=== PATIENT | male | born 1995 | race Caucasian/White ===

== ENCOUNTER 2025-02-25 16:37 | Emergency (ER) | payer OTHER, SELFPAY ==
--- NOTE | ~2025-02-25 | XR_ITS ---
HISTORY: tackled in rugby COMPARISON: None TECHNIQUE: 2 views of the left shoulder were performed. FINDINGS: No acute fracture. The glenohumeral and acromioclavicular joint space is maintained The visualized portion of the adjacent left lung is clear. The humeral head is well seated within the glenoid fossa. IMPRESSION: No acute fracture or anterior dislocation. Reviewed, dictated and finalized at location A.
--- OUTSIDE RECORDS SUMMARY | 2025-02-25 16:40 | XMS_ITS | Clinical Summary ---
Author Organization [employer] Address [address] [place] [address] Care Team Providers Care Tool Room Supervisor Name Role Phone TresPaul Ulises RAZA Primary Care Provi liborio Allergies No known active allergies Medications No known medications Active Problems Problem Noted Date Diagnosed Date Obesity (BMI 30.0-34.9) 07/04/2024 Overview (07/04/2024): Wt Readings from Last 3 Encounters: 07/04/24 107 kg (236 lb) 02/21/24 104.3 kg (230 lb) 02/03/24 106.6 kg (235 lb) - Diet: eats out and cooks at home, lean meat, healthy choices, well hydrated - Exercise: Rugby - Starting weight: 236 - Goal weight: no goal Assessment & Plan (07/04/2024 10:55 AM CDT): Not at goal. Recommended increased exercise and dietary control, up to and including Weight Watchers or counting calories. Recommended increased exercise and dietary control, up to and including Weight Watchers, MyFitnesspal, or other avenues of counting calories. Most recent thyroid function reviewed (if available). Recommended Mediterranean diet, unless diabetic, at which point I recommended diabetic diet. Have considered medications as well, see orders. Periodically will assess for potential for bariatric surgery, see patient instructions. Resolved Problems Problem Noted Date Diagnosed Date Resolved Date Seizure, 05/25/2008 09/17/2023 Overview (05/25/2008): Seizures as . Also had dislocated shoulder during . Never on any meds. No seizure activity since age. Encounters Date Type Department Care Team Description 02/07/2025 External Device Data [facility] ABSTRACTION Provider, Abstract 02/07/2025 External Device Data [facility] ABSTRACTION Provider, Abstract 02/07/2025 External Device Data [facility] ABSTRACTION Provider, Abstract 02/06/2025 External Device Data [facility] ABSTRACTION Provider, Abstract 02/06/2025 External Device Data [facility] ABSTRACTION Provider, Abstract 12/22/2024 External Device Data [facility] ABSTRACTION Provider, Abstract 12/20/2024 External Device Data [facility] ABSTRACTION Provider, Abstract 12/13/2024 External Device Data [facility] ABSTRACTION Provider, Abstract 12/06/2024 External Device Data [facility] ABSTRACTION Provider, Abstract from Last 3 Months Immunizations Immunization Administration Dates Next Due (ADACEL/BOOSTRIX)(10 YR UP) TDAP VACCINE, 0.5ML, IM 12/12/2014,05/18/2014,05/25/2008 (IPOL)(6 WKS AND UP) POLIOVI GENA VACCINE, INACTIVATED (IPV), 3 DOSE, SUBCUT OR IM 06/21/2014 (MENACTRA)(9 MO-55 YR) MENIN GOCOCCAL POLYSACCHARIDE A, C, Y AND W-135 DIPTHERIA TOXOID CONJUGATE VACCINE, (PF), 0.5ML, IM 05/18/2014 (MENVEO)(1 VIAL/2 VIAL)(10-5 5 YRS/2 MOS-55 YRS) MENINGOCOCCAL ACYW OLIGOSACCHARIDE CONJUGATE VACCINE, (PF) IM 05/18/2014 (TYPHIM )(2 YRS UP) TYPHOI D CAPSULAR POLYSACCHARIDE VACCINE, 0.5 ML, IM 11/06/2015 Adenovirus Vaccine Type 4 05/18/2014 Hepatitis B Vaccine 01/19/2015,06/21/2014,2013 INFLUENZA VACCINE QUADRIVALE NT 2-49 YRS NASAL 11/07/2015 INFLUENZA VACCINE QUADRIVALE NT 6 MOS UP PF IM 09/24/2016 Influenza Seasonal Unspecifi ed Formulation IM 05/18/2014 Family History Medical History Relation Name Comments Healthy Brother No Known Problems Daughter Healthy Father Lung Cancer Maternal Grandfather Melanoma Maternal Grandfather Heart Disease Maternal Grandmother Cancer Mother Healthy Mother Respiratory Disease Paternal Grandfather Healthy Paternal Grandmother Relation Name Status Comments Brother Alive Daughter Alive Father Alive Maternal Grandfather Maternal Grandmother Alive Mother Paternal Grandfather Alive Paternal Grandmother Alive Social History Tobacco Use Types Packs/Day Years Used Date Smoking Tobacco: Never Passive Smoke Exposure: Never Smokeless Tobacco: Never Tobacco Cessation:Counseling Given: Not Answered Alcohol Use Standard Drinks/Week Comments No 0 (1 standard drink = 0.6 oz pur e alcohol) Feeling Safe Answer Date Recorded Are you in a relationship wi th someone who hurts you emotionally and/or physically? No 02/21/2024 Sex and Gender Information Value Date Recorded Sex Assigned at Not on file Legal Sex Male 5:35 AM EDUCATION DEAN Gender Identity Not on file Sexual Orientation Not on file Last Filed Vital Signs Vital Sign Reading Time Taken Comments Blood Pressure 122/74 07/04/2024 10:18 AM CDT Pulse 80 07/04/2024 10:18 AM CDT Temperature 36.6 C (97.8 F) 07/04/2024 10:18 AM CDT Respiratory Rate 16 02/21/2024 11:00 AM CDT Oxygen Saturation 98% 07/04/2024 10:18 AM CDT Inhaled Oxygen Concentration - - Weight 107 kg (236 lb) 07/04/2024 10:18 AM CDT Height 177.8 cm (5' 10 ) 07/04/2024 10:18 AM CDT Body Mass Index 33.86 07/04/2024 10:18 AM CDT Plan of Treatment Upcoming Encounters Date Type Department Care Team (Late st Contact Info) Description 07/04/2025 9:00 AM CDT Office Visit [facility] - [address] [facility] [place] [address] Paul Joshua, [address] [facility] [place] [address] Health Maintenance Due Date Last Done Comments HEPATITIS B VACCINES (1 of 3 - 19+ 3-dose series) 2012 01/19/2015, 06/21/2014, 05/18/2014 INFLUENZA VACCINE (#1) 2024 6, 11/07/2015, 05/18/2014 Preventative Visit- Commercial 11/30/2024 07/04/2024, 05/25/2008 DTAP/TDAP/TD VACCINES (4 - T d or Tdap) 12/12/2024 12/12/2014, 05/18/2014, 05/25/2008 HPV VACCINES Aged Out No longer eligi ble based on patient's age to complete this topic PNEUMOCOCCAL VACCINE 0-49 YEARS Aged Out No longer eligible b ased on patient's age to complete this topic Insurance [facility] CHOICE [id number] [facility] Address: [address] [address] [place] [address] [facility] [id number] Care Teams Tool Room Supervisor Relationship Specialty Start Date End Date Paul Joshua DO [address] [place] [id number] PCP - General Family Practice 07/04/24
--- NOTE | 2025-02-25 16:43 | ED.GENADULT ---
HPI - General Adult General Chief complaint: Extremity Injury, Upper Stated complaint: Left Shoulder Injury Time Seen by Provider: 02/25/25 16:43 Source: patient Mode of arrival: ambulatory Limitations: no limitations History of Present Illness HPI narrative: 29-year-old male patient presents to the [facility] with complaints of left shoulder pain. Patient states he was playing rugby today went to tackle and felt pain to the left shoulder. Patient states the game started about 2:00 p.m. today and the incident happened shortly after the game started. Patient states he did take about 500 mg of Tylenol for pain. Related Data Allergies Allergy/AdvReac Type Severity Reaction Status Date / Time No Known Allergies Allergy Verified 02/25/25 16:49 Review of Systems Review of Systems: CONSTITUTIONAL: Denies fever, chills, or sweats. EYES: Denies visual changes, redness, or discharge. ENT: Denies rhinorrhea, congestion, sore throat, or otalgia. CARDIOVASCULAR: Denies chest pain, palpitations, or edema. RESPIRATORY: Denies cough or dyspnea. GASTROINTESTINAL: Denies abdominal pain, nausea, vomiting, or diarrhea. GENITOURINARY: Denies dysuria or hematuria. SKIN: Denies rash or itching. MUSCULOSKELETAL: Denies back pain, joint pain, or myalgia. Positive left shoulder pain NEUROLOGIC: Denies headache, numbness, or weakness. PSYCHIATRIC: Denies anxiety or depression. PMFSH Comments At the time of my signature I agree with nursing past medical history, surgical, social, and family history. There is no relevant family history pertinent to the presenting complaint. Exam Narrative: GENERAL: Well-appearing, well-nourished, and in no acute distress. HEAD: Normocephalic, atraumatic. EYES: PERRLA and EOMI. ENT: Nares clear, no rhinorrhea or epistaxis. Mucous membranes moist. NECK: Supple. No lymphadenopathy CHEST: Clear to auscultation. No respiratory distress. HEART: Regular rate and rhythm. No murmur heard. Normal peripheral pulses. ABDOMEN: Soft, nontender, nondistended, normal active bowel sounds. EXTREMITIES: The L shoulder is without obvious asymmetry or deformity when compared to the R shoulder. No surface trauma, ecchymosis, crepitus. No bony deformity or prominence of the humeral head No erythema, warmth, swelling. tenderness to palpation to A to C joint and rotator cuff. No tenderness to palpation of the bicipital groove or soft tissues. No tenderness to palpation of the muscles of the sterncleidomastoid, pectorals, biceps/triceps, deltoid, trapezius, rhomboid, latissimus dorsi. pain and limitation with active abduction/adduction, internal/external rotation, flexion/extension. unable to perform empty can and drop arm test (rotator cuff) due to patient is not able to raise his arm past his chest. Patient unable to touch his opposite shoulder with the left hand. Has very minimal range of motion reaching towards the lower back. Strength to the left emergency dispatch operator is 2/5 compared to 5/5 on the right side. No axillary tenderness or lymphadenopathy. Normal sensation over the deltoid and ability to flex arm at elbow indicates intact axillary nerve function. Distal motor and neurovascular status is intact. SKIN: Warm, dry, no rash. NEURO: No focal deficits. Alert and oriented x3. Course Course Level of Care: Express Care Visit Vital Signs Vital signs: Vital Signs Temperature 36.6 C 02/25/25 16:49 Pulse Rate 94 02/25/25 16:49 Respiratory Rate 18 02/25/25 16:49 Blood Pressure 151/86 H 02/25/25 16:49 Pulse Oximetry 98 02/25/25 16:49 Oxygen Delivery Room Air 02/25/25 16:49 Temperature 36.6 C 02/25/25 16:49 Pulse Rate 94 02/25/25 16:49 Respiratory Rate 18 02/25/25 16:49 Blood Pressure 151/86 H 02/25/25 16:49 Pulse Oximetry 98 02/25/25 16:49 Oxygen Delivery Room Air 02/25/25 16:49 Vital signs reviewed. The patient has been informed that they may have pre-hypertension or Hypertension based on a BP reading in the department. I recommend that the patient call the primary care provider listed on their discharge instructions or a physician of their choice this week to arrange follow up for further evaluation of possible pre-hypertension or Hypertension Medical Decision Making MDM Narrative Medical decision making narrative: Plan of care patient is to x-ray the left shoulder to assess for any acute injury. I highly suspect possible rotator cuff or AC tear. Plan of care is to give patient some ibuprofen in the clinic today as well as sling and most likely will follow-up with ortho for further evaluation and treatment Differential Diagnosis Differential Diagnosis: Differential diagnosis: Neurovascular compromise, anterior shoulder dislocation, posterior dislocation, facture, AC separation, shoulder cuff tear, bursitis, tendinitis Vital Signs Vital Signs: Vital Signs Temperature 36.6 C 02/25/25 16:49 Pulse Rate 94 02/25/25 16:49 Respiratory Rate 18 02/25/25 16:49 Blood Pressure 151/86 H 02/25/25 16:49 Pulse Oximetry 98 02/25/25 16:49 Oxygen Delivery Room Air 02/25/25 16:49 Temperature 36.6 C 02/25/25 16:49 Pulse Rate 94 02/25/25 16:49 Respiratory Rate 18 02/25/25 16:49 Blood Pressure 151/86 H 02/25/25 16:49 Pulse Oximetry 98 02/25/25 16:49 Oxygen Delivery Room Air 02/25/25 16:49 Imaging Data Radiologist's impression: [place] [address] XRay Report Signed Patient: Da Delgado : 1995 MR#: [id number] Age: 29 Acct:[id number] Loc: [facility] ADM Date: 02/25/25Attending Dr: Ordering Physician: Hanh Kwan APRN Date of Service: 02/25/25 Procedure(s): XR shoulder LT min 2V Accession Number(s): [id number] cc: UNKNOWN,DOCTOR; Hanh Kwan APRN~ HISTORY: tackled in rugby COMPARISON: None TECHNIQUE: 2 views of the left shoulder were performed. FINDINGS: No acute fracture. The glenohumeral and acromioclavicular joint space is maintained The visualized portion of the adjacent left lung is clear. The humeral head is well seated within the glenoid fossa. IMPRESSION: No acute fracture or anterior dislocation. Reviewed, dictated and finalized at location A. Critical Care Time Critical Care Time Critical Care Time: No Discharge Plan Discharge Clinical Impression: Internal derangement of left shoulder Patient Disposition: Home, Self-Care Condition: Stable Instructions: Antibiotic Form, Rotator Cuff Injury (ED) Additional Instructions: Ice and heat to the area for 20-30 minutes Gentle stretching exercises Gentle massage Caution with lifting, bending, stooping, twisting Avoid pushing, pulling take muscle relaxants as directed--caution drowsiness and no driving or alcohol Anti-inflammatory medicine as directed--take with food Follow-up with your PCP if not improving in 5-7 days Patient Language: Cymraes Prescriptions: New cyclobenzaprine 10 mg tablet 10 mg PO TID PRN (Reason: muscle spasm) 10 Days Qty: 30 0RF Follow-up/Referrals: Mesfin Yoder MD [Physician] - UNKNOWN,DOCTOR [Primary Care Provider] - Time of Disposition: 17:48
--- OUTSIDE RECORDS SUMMARY | 2025-02-25 16:44 | XMS_ITS | Clinical Summary ---
Author Organization [facility] Address [address] [place] [address] Care Team Providers Care Bobtail Driver Name Role Phone Unavailable Primary Care Provider Unavailabl e Social History Tobacco Use Types Packs/Day Years Used Date Smoking Tobacco: Never Assessed Sex and Gender Information Value Date Recorded Sex Assigned at Not on file Legal Sex Male 8:05 AM CDT Gender Identity Not on file Sexual Orientation Not on file Last Filed Vital Signs Vital Sign Reading Time Taken Comments Blood Pressure 110/72 09/28/2012 1:28 PM CDT Pulse 84 09/28/2012 1:28 PM CDT Temperature - - Respiratory Rate - - Oxygen Saturation - - Inhaled Oxygen Concentration - - Weight 76.7 kg (169 lb) 09/28/2012 1:28 PM CDT Height 180.3 cm (5' 11 ) 09/28/2012 1:28 PM CDT Body Mass Index 23.57 09/28/2012 1:28 PM CDT Plan of Treatment Health Maintenance Due Date Last Done Comments Annual Physical 1996 Hepatitis C 2011 DTaP, Tdap and Td Vaccines ( 1 - Tdap) 2012 Hepatitis B Vaccines (1 of 3 - 19+ 3-dose series) 2012 COVID-19 Vaccine (2023-2 5 season) 2024 HPV Vaccines Aged Out No longer eligi ble based on patient's age to complete this topic Meningococcal B Vaccine Aged Out No l onger eligible based on patient's age to complete this topic Meningococcal Vaccine Aged Out No mango alden eligible based on patient's age to complete this topic Pneumococcal Vaccine: Pediat rics (0 to 5 Years) and At-Risk Patients (6 to 64 Years) Aged Out No longer eligible b ased on patient's age to complete this topic RSV Immunizations Under 20 Months Aged Out No longer eligible based on patient's age to complete this topic
[2025-02-25 16:49] VITALS: BP 151/86; PULSE 94; RESP 18; TEMP 36.6; O2SAT 98
[2025-02-25] MEDS: IBUPROFEN 400 MG TABLET 800 MG PO (17:11)
== END 2025-02-25 17:52 | disposition home or self-care (01) ==
PROVIDERS: Emergency Provider Nurse Practitioner Family
DX: M24.9 Joint derangement, unspecified (principal)
CPT/HCPCS: 73030; 99203; A4565; A9270; G0463

== ENCOUNTER 2025-03-11 10:21 | Outpatient (CLI) | payer OTHER, SELFPAY ==
--- NOTE | ~2025-03-11 | MR_ITS ---
MRI of the left shoulder Technique: Axial proton-density fat-sat images, coronal proton density fat-sat and T2 fat-sat images, and sagittal T1-weighted and T2 fat-sat images were acquired. Clinical History: Pain, limited range of motion Findings: There is mild AC joint degenerative change. Coracoclavicular, coracoacromial, and coracohum eral ligaments are intact. Supraspinatus and infraspinatus tendons are intact, without partial or full-thickness tear. There is mild tendinosis. Subscapularis tendon is intact with mild tendinosis. Tendon of long head of the olamide ps is intact. There is focal superior labral tear probably extending to the anterosuperior portion. There is additi onal tearing at the anterior labrum at the equator. Inferior glenohumeral ligament is intact. No significant joint effusion or degenerative change of the glenohumeral joint. No fluid distention of the subacromial/subdeltoid bursa. No muscle atrophy or ed diane. Impression: Superior labral tear extending to the anterosuperior and anterior portions at the equator. Mild rotator cuff tendinosis. Minimal AC joint degenerative change. Reviewed, dictated and finalized at location . Impression: Superior labral tear extending to the anterosuperior and anterior portions at t he equator. Mild rotator cuff tendinosis. Minimal AC joint degenerative change.
== END 2025-03-11 10:22 | disposition home or self-care (01) ==
PROVIDERS: PCP Orthopaedic Surgery; Visit Provider Orthopaedic Surgery
DX: S46.912A Strain of unspecified muscle, fascia and tendon at shoulder and upper arm level, left arm, initial encounter (principal); M25.512 Pain in left shoulder
CPT/HCPCS: 73221